=== PATIENT | female | born 1990 | race Caucasian/White ===

== ENCOUNTER → 2019-11-29 | Outpatient (CLI) | payer OTHER | LOC: COL.RAD 09:38 | DX: M47.816 Spondylosis without myelopathy or radiculopathy, lumbar region (principal) ==

== ENCOUNTER 2022-06-20 15:05 | Outpatient (CLI) | payer OTHER ==
[~2022-06-20] VITALS: Ht 172.7 cm; Wt 77.3 kg
--- NOTE | 2022-06-20 15:15 | NUR ---
1515: PT AMBULATORY TO UNIT C/O "I WAS AT [facility] AND THEY SAID I WAS 1.5CM DILATED AND THEY SWABBED ME AND SAID IT WAS NEGATIVE FOR AMNIOTIC FLUID, BUT I DON'T TRUST THEM." REPORTS FEELING A GUSH OF FLUID AROUND 1000, HAS SLOWED SINCE. REPORTS POSITIVE MOVEMENT AND REPORTS CONTRACTIONS Q4 MINUTES APART. INITIAL EFM TRACING CATEGORY 1 STRIP. NO CONTRACTIONS TRACING ON TOCO, OR FELT WITH PALPATION. SVE 1.5/50/-3 AND AMNITEST NEGATIVE PER GUERDA LERNER UPON ARRIVAL. SEE PHYSICIAN NOTIFICATION.
[2022-06-20] MEDS ORDERED: PRENATAL (15:22)
[2022-06-20 15:50] VITALS: BP 116/73; PULSE 106; TEMP 98.3
== END 2022-06-20 16:00 | disposition home or self-care (01) ==
LOC: LDRO 15:05
DX: Z34.93 Encounter for supervision of normal pregnancy, unspecified, third trimester (principal); Z3A.38 38 weeks gestation of pregnancy